=== PATIENT | female | born 1995 | race Caucasian/White ===

== ENCOUNTER → 2018-02-08 | Outpatient (CLI) | payer OTHER ==
[~2018-02-08] MED LIST: HYDACE5 PO; Miralax17 GM PO; SEASONAL ALLERGY MED; Zofran Odt4 MG SL
[2018-02-09 11:58] LABS: Bilirubin, Urine Neg (Neg); Blood, Urine Neg (Neg); Glucose Qualitative, Urine Neg (Neg); Ketones, Urine Neg (Neg); Leukocyte Esterase, Urine 1+ (Neg); Nitrite, Urine Neg (Neg); Protein, Urine Neg (Neg); Urobilinogen, Urine NORM (Normal)
[2018-02-09 12:04] LABS: Appearance, Urine Clear (Clear); Color, Urine Yellow (P-Yellow)
[2018-02-09 12:05] LABS: Red Blood Cells, Urine Not Seen /hpf (0-2); Squamous Epithelial Cells Many /hpf (Few); White Blood Cells, Urine 0-2 /hpf (0-5)
[2018-02-09 12:06] LABS: Bacteria Not Seen /hpf; Triple Phosphate Crystals Few /hpf
== END ==
LOC: LAB 11:34 → LAB SHORT 11:34
PROVIDERS: Registered Nurse Community Health
DX: Z34.91 Encounter for supervision of normal pregnancy, unspecified, first trimester (principal)
CPT/HCPCS: 81001; 87086

== ENCOUNTER → 2018-03-01 | Outpatient (CLI) | payer OTHER ==
[2018-03-03 03:12] LABS: CHLAMYDIA TRACHOMATIS, NAA Negative (Negative); NEISSERIA GONORRHOEAE, NAA Negative (Negative)
== END ==
LOC: LAB 14:08 → LAB SHORT 14:08
PROVIDERS: Registered Nurse Community Health
DX: Z11.3 Encounter for screening for infections with a predominantly sexual mode of transmission (principal)
CPT/HCPCS: 87491; 87591

== ENCOUNTER → 2018-03-13 | Outpatient (CLI) | payer OTHER ==
[2018-03-13 11:02] LABS: BASOPHILS ABSOLUTE AUTO 0.06 K/mm3 (0.00-0.23); BASOPHILS PERCENT AUTO 1 % (0-2); EOSINOPHILS ABSOLUTE AUTO 0.07 K/mm3 (0.00-0.68); EOSINOPHILS PERCENT AUTO 1 % (0-6); Hematocrit 39.9 % (33.0-51.0); Hemoglobin 14.2 g/dL (11.5-16.0); IMMATURE GRAN PERCENT AUTO 1 % (0-1); LYMPHOCYTES ABSOLUTE AUTO 2.45 K/mm3 (0.84-5.20); LYMPHOCYTES PERCENT AUTO 23 % (21-46); MONOCYTES ABSOLUTE AUTO 0.71 K/mm3 (0.16-1.47); MONOCYTES PERCENT AUTO 7 % (4-13); Mean Corpuscular HGB 30.3 pg (26.0-34.0); Mean Corpuscular HGB Conc 35.6 g/dL (31.5-36.5); Mean Corpuscular Volume 85 fL (80-100); Mean Platelet Volume 10.1 fL (9.1-12.4); NEUTROPHILS ABSOLUTE AUTO 7.45 K/mm3 (1.96-9.15); NEUTROPHILS PERCENT AUTO 69 % (41-73); Platelet Count 311 K/mm3 (150-400); RDW Coefficient Variation 12.8 % (11.7-14.2); RDW Standard Deviation 39.1 fL (35.1-46.3); Red Blood Cell Count 4.68 M/mm3 (3.80-5.20); White Blood Cell Count 10.84 K/mm3 (4.00-11.30)
[2018-03-13 11:10] LABS: Alanine Aminotransfer (ALT/SGP 54 U/L (12-78); Albumin, Blood 3.7 g/dL (3.4-5.0); Alk Phos 62 U/L (40-126); Anion Gap 15 mmol/L (6-16); Aspartate Aminotrans (AST/SGOT 25 U/L (12-37); Bilirubin, Total 0.6 mg/dL (0.1-1.0); Blood Urea Nitrogen 10 mg/dL (8-24); Bun/Creatinine Ratio 13.7 (12.0-20.0); CO2, Blood 20 mmol/L (21-32); Calcium, Blood 8.8 mg/dL (8.5-10.1); Chloride, Blood 102 mmol/L (98-108); Creatinine, Blood 0.73 mg/dL (0.40-1.00); Globulin, Blood 3.8 g/dL (2.2-4.0); Glomerular Filtration Rate >60 (60-); Glucose, Blood 120 mg/dL (70-99); Potassium, Blood 3.2 mmol/L (3.5-5.5); Sodium, Blood 137 mmol/L (136-145); Total Protein, Blood 7.5 g/dL (6.4-8.2)
== END | disposition home or self-care (01) ==
LOC: LAB SHORT 10:55 → LAB EV 10:55
PROVIDERS: Physician Assistant Medical
DX: R11.2 Nausea with vomiting, unspecified (principal)
CPT/HCPCS: 80053; 85025

== ENCOUNTER → 2018-06-22 | Outpatient (CLI) | payer OTHER ==
[2018-06-22 12:12] LABS: Blood, Urine 2+ (Neg); Glucose Qualitative, Urine Neg (Neg); Ketones, Urine 4+ (Neg); Leukocyte Esterase, Urine 2+ (Neg); Nitrite, Urine Pos (Neg); Protein, Urine 2+ (Neg); Urobilinogen, Urine 3+ (Normal)
[2018-06-22 12:38] LABS: Appearance, Urine Turbid (Clear); Bilirubin, Urine 2+ (Neg); Color, Urine Yellow (P-Yellow)
[2018-06-22 12:39] LABS: Amorphous Mod (0-Heavy); Mucus Light (0-Heavy)
[2018-06-22 12:40] LABS: Bacteria Few /hpf; Squamous Epithelial Cells Mod /hpf (Few)
== END ==
LOC: LAB 11:47 → LAB SHORT 11:47
PROVIDERS: Registered Nurse Community Health
DX: R82.998 Other abnormal findings in urine (principal)
CPT/HCPCS: 81001

== ENCOUNTER 2018-06-26 14:05 | Day surgery (SDC) | payer OTHER | END 2018-06-26 22:59 | disposition home or self-care (01) | LOC: ATC 14:05 | DX: O21.2 Late vomiting of pregnancy (principal); Z3A.23 23 weeks gestation of pregnancy | CPT/HCPCS: 96361; 96374; J2405 ==

== ENCOUNTER 2018-06-29 11:09 | Observation (INO) | payer OTHER ==
[2018-06-29 16:07] LABS: Source, Urine Clean Catch
[2018-06-29 16:18] LABS: Appearance, Urine Hazy (Clear); Bilirubin, Urine Neg (Neg); Blood, Urine 1+ (Neg); Color, Urine Amber (P-Yellow); Glucose Qualitative, Urine 3+ (Neg); Ketones, Urine 4+ (Neg); Leukocyte Esterase, Urine 1+ (Neg); Nitrite, Urine Neg (Neg); Protein, Urine 2+ (Neg); Specific Gravity, Urine 1.025 (1.003-1.022); Urobilinogen, Urine 2+ (Normal)
[2018-06-29 16:43] LABS: Squamous Epithelial Cells Mod /hpf (Few)
[2018-06-29 16:44] LABS: Bacteria Few /hpf
--- NOTE | 2018-06-29 17:06 | NUR ---
SENT OVER FROM OFFICE FOR IV HYDRATION.HAS RECEIVED 2500 CC OF IVF AND URINE KETONES ARE 4+
--- NOTE | 2018-06-29 21:09 | NUR ---
PT HAS BEEN SITTING UP IN HIGH FOWLERS POSITION IN BED. NO EMESIS THIS SHIFT. PT HAS BEEN UP TO BATHROOM TWICE WITH A TOTAL OF 250 ML OUTPUT SO FAR THIS SHIFT. URINE CONCENTRATED COLOR. PT C/O INTENSE REFLUX/HEARTBURN. UNABLE TO EAT ANYTHING AT THIS POINT EVEN AFTER PROTONIX. CRACKERS, PRETZELS, AND FRITOS AT THE BEDSIDE. PT EATING ICE CHIPS AT THIS POINT.
--- NOTE | 2018-06-29 23:08 | NUR ---
PT MEDICATED FOR NAUSEA AND GOING TO TRY TO SLEEP. LIGHTS OFF. PT TO CALL IF SHE WAKES AND NEEDS ANYTHING OTHERWISE RN WILL BE IN ROOM TO CHANGE FLUIDS NEEDED.
--- NOTE | 2018-06-30 03:56 | NUR ---
PT HAS BEEN SLEEPING. PT HAS ONLY HAD A COUPLE PRETZELS THIS SHIFT THAT DID NOT SIT WELL WITH HER STOMACH. NO EMESIS THIS SHIFT. PT CURRENLTY EATING ICE CHIPS. LUNGS CLEAR. NO SOB NOTED. NO CHANGES IN SWELLING ONLY TRACE EDEMA NOTED TO BLE. PT HAD DENIED NEEDING SECOND DOSE OF PHENERGAN. WILL CONT TO MONITOR
--- NOTE | 2018-06-30 06:25 | NUR ---
PT DUE FOR ZOFRAN HOWEVER PT SLEEPING IN ROOM. NO EMESIS THIS SHIFT. PT WAS ABLE TO SLEEP SOME DURING THE SHIFT. URINE REMAINS CONCENTRATED HOWEVER COLOR HAS GONE FROM SLIGHTLY KENNETH TO MEDIUM TO DARK YELLOW COLOR.
--- NOTE | 2018-06-30 07:59 | NUR ---
LEX COURTNEY AT BEDSIDE
[2018-06-30 08:45] LABS: BASOPHILS ABSOLUTE AUTO 0.02 K/mm3 (0.00-0.23); BASOPHILS PERCENT AUTO 0 % (0-2); EOSINOPHILS ABSOLUTE AUTO 0.06 K/mm3 (0.00-0.68); EOSINOPHILS PERCENT AUTO 1 % (0-6); Hematocrit 26.3 % (33.0-51.0); Hemoglobin 9.1 g/dL (11.5-16.0); IMMATURE GRAN ABSOLUTE AUTO 0.19 K/mm3 (0.00-0.10); IMMATURE GRAN PERCENT AUTO 3 % (0-1); LYMPHOCYTES ABSOLUTE AUTO 1.58 K/mm3 (0.84-5.20); LYMPHOCYTES PERCENT AUTO 27 % (21-46); MONOCYTES ABSOLUTE AUTO 0.44 K/mm3 (0.16-1.47); MONOCYTES PERCENT AUTO 7 % (4-13); Mean Corpuscular HGB Conc 34.6 g/dL (31.5-36.5); Mean Corpuscular Volume 90 fL (80-100); Mean Platelet Volume 10.2 fL (9.1-12.4); NEUTROPHILS ABSOLUTE AUTO 3.62 K/mm3 (1.96-9.15); NEUTROPHILS PERCENT AUTO 61 % (41-73); Platelet Count 153 K/mm3 (150-400); RDW Coefficient Variation 13.9 % (11.7-14.2); Red Blood Cell Count 2.94 M/mm3 (3.80-5.20); White Blood Cell Count 5.91 K/mm3 (4.00-11.30)
[2018-06-30 09:04] LABS: Alanine Aminotransfer (ALT/SGP 30 U/L (12-78); Albumin, Blood 2.4 g/dL (3.4-5.0); Albumin/Globulin Ratio 0.8 (0.8-1.8); Alk Phos 55 U/L (50-136); Anion Gap 7 mmol/L (6-16); Aspartate Aminotrans (AST/SGOT 14 U/L (12-37); Bilirubin, Total 0.6 mg/dL (0.1-1.0); Blood Urea Nitrogen 2 mg/dL (8-24); Bun/Creatinine Ratio 4.4 (12.0-20.0); CO2, Blood 25 mmol/L (21-32); Calcium, Blood 7.4 mg/dL (8.5-10.1); Chloride, Blood 106 mmol/L (98-108); Creatinine, Blood 0.46 mg/dL (0.40-1.00); Globulin, Blood 3.1 g/dL (2.2-4.0); Glomerular Filtration Rate >60 (60-); Glucose, Blood 116 mg/dL (70-99); Potassium, Blood 2.6 mmol/L (3.5-5.5); Sodium, Blood 138 mmol/L (136-145); Total Protein, Blood 5.5 g/dL (6.4-8.2)
[2018-06-30 09:11] LABS: Source, Urine Clean Catch
[2018-06-30 09:20] LABS: Bilirubin, Urine Neg (Neg); Blood, Urine Neg (Neg); Glucose Qualitative, Urine Neg (Neg); Ketones, Urine 3+ (Neg); Leukocyte Esterase, Urine Neg (Neg); Nitrite, Urine Neg (Neg); Protein, Urine Neg (Neg); Urobilinogen, Urine 2+ (Normal)
[2018-06-30 09:21] LABS: Appearance, Urine Clear (Clear); Color, Urine Yellow (P-Yellow)
--- NOTE | 2018-06-30 10:38 | NUR ---
WATER GIVEN, ENCOURAGED TO TRY AND DRINK 1 CUP IN AN HOUR
--- NOTE | 2018-06-30 11:36 | NUR ---
PT DRANK 300CC FLUID IN AN HOUR, ATE A FEW PRETZELS. FEELS SOME NAUSEA BUT STATES SHE WOULD RATHER BE AT HOME. WOULD LIKE TO DISCHARGE TO HOME NOW.
--- NOTE | 2018-06-30 11:50 | NUR ---
DISCHARGE INSTRUCTIONS REVIEWED AND SIGNED. ALL QUESTIONS ANSWERED. PT CUP GIVEN PT UNDERSTANDS TO DRINK 1CUP OF FLUID EACH HOUR AND TO CONTINUE EATING. T DOPPLERED, 145. PT DISCHARGED TO HOME.
== END 2018-06-30 11:52 | disposition home or self-care (01) ==
LOC: BC 11:09 → OBS 11:09 → BC 17:44
PROVIDERS: ADMIT Registered Nurse Community Health
DX: O21.1 Hyperemesis gravidarum with metabolic disturbance (principal); Z3A.24 24 weeks gestation of pregnancy
CPT/HCPCS: 36415; 80053; 81001; 81003; 85025; 96361; 96374; 96375; 96376; C9113; G0378; J2405; J7120

== ENCOUNTER 2018-07-04 00:21 | Day surgery (SDC) | payer OTHER ==
--- NOTE | 2018-07-04 09:48 | NUR ---
IV START: IV STARTED BY SN ROBBIE MILLER, ATTEMPTED 2 TIMES, SUCCESSFUL ON 2ND ATTEMPT IN R HAND.
== END 2018-07-04 22:43 | disposition home or self-care (01) ==
LOC: ATC 00:21
DX: O21.9 Vomiting of pregnancy, unspecified (principal); O99.282 Endocrine, nutritional and metabolic diseases complicating pregnancy, second trimester; E86.0 Dehydration; Z79.899 Other long term (current) drug therapy; Z87.891 Personal history of nicotine dependence; Z3A.27 27 weeks gestation of pregnancy
CPT/HCPCS: 96361; 96374; J2405; J7060; J7120

== ENCOUNTER 2018-07-06 00:02 | Day surgery (SDC) | payer OTHER ==
[2018-07-10] MEDS ORDERED: METO5A PO (09:28)
[2018-07-10] MEDS ORDERED: PROM25 PO (09:28)
[2018-07-10] MEDS ORDERED: Verotin-Gr Cap1 EACH PO (09:29)
== END 2018-07-06 12:21 | disposition home or self-care (01) ==
LOC: ATC 00:02
DX: O21.9 Vomiting of pregnancy, unspecified (principal); O99.280 Endocrine, nutritional and metabolic diseases complicating pregnancy, unspecified trimester; E86.0 Dehydration; Z87.891 Personal history of nicotine dependence
CPT/HCPCS: 96361; 96372; 96374; J2405; J3415; J7060; J7120

== ENCOUNTER 2018-07-12 00:15 | Day surgery (SDC) | payer OTHER ==
[~2018-07-12 00:15] MED LIST changes: +METO5A PO; +PROM25 PO; +Verotin-Gr Cap1 EACH PO
== END 2018-07-12 12:12 | disposition home or self-care (01) ==
LOC: ATC 00:15
DX: O21.9 Vomiting of pregnancy, unspecified (principal); O99.282 Endocrine, nutritional and metabolic diseases complicating pregnancy, second trimester; E86.0 Dehydration
CPT/HCPCS: 96361; 96372; 96374; J2405; J3415; J7060; J7120

== ENCOUNTER 2018-07-19 00:16 | Day surgery (SDC) | payer OTHER ==
[2018-07-19] MEDS ORDERED: (None)100 MG/ML IM (09:13)
== END 2018-07-19 11:52 | disposition home or self-care (01) ==
LOC: ATC 00:16
DX: O99.280 Endocrine, nutritional and metabolic diseases complicating pregnancy, unspecified trimester (principal); E86.0 Dehydration; O21.9 Vomiting of pregnancy, unspecified; Z87.891 Personal history of nicotine dependence
CPT/HCPCS: 96361; 96372; 96374; J2405; J3415; J7060; J7120

== ENCOUNTER 2018-07-24 00:27 | Day surgery (SDC) | payer OTHER ==
[~2018-07-24 00:27] MED LIST changes: +(None)100 MG/ML IM
== END 2018-07-24 12:10 | disposition home or self-care (01) ==
LOC: ATC 00:27
DX: O21.9 Vomiting of pregnancy, unspecified (principal); O99.282 Endocrine, nutritional and metabolic diseases complicating pregnancy, second trimester; E86.0 Dehydration
CPT/HCPCS: 96361; 96372; 96374; J2405; J3415; J7060; J7120

== ENCOUNTER 2018-07-26 00:04 | Day surgery (SDC) | payer OTHER | END 2018-07-26 12:28 | disposition home or self-care (01) | LOC: ATC 00:04 | DX: O21.9 Vomiting of pregnancy, unspecified (principal); O99.280 Endocrine, nutritional and metabolic diseases complicating pregnancy, unspecified trimester; E86.0 Dehydration | CPT/HCPCS: 96361; 96372; 96374; J2405; J3415; J7060; J7120 ==

== ENCOUNTER 2018-07-31 11:58 | Day surgery (SDC) | payer OTHER ==
[2018-07-31] MEDS ORDERED: ONDA8 PO (14:14)
[2018-09-18] MEDS ORDERED: ONDANSETRON4 MG/2 ML (09:06)
[2018-09-18] MEDS ORDERED: ONDA8 PO (09:07)
[2018-09-18] MEDS ORDERED: OMEPRAZOLE20 MG PO (09:07)
[2018-09-18] MEDS ORDERED: PANT40 PO (09:08)
[2018-09-18] MEDS ORDERED: METO10 PO (09:09)
== END 2018-07-31 16:43 | disposition home or self-care (01) ==
LOC: ATC 11:58
DX: O21.9 Vomiting of pregnancy, unspecified (principal); O99.280 Endocrine, nutritional and metabolic diseases complicating pregnancy, unspecified trimester; E86.0 Dehydration
CPT/HCPCS: 96361; 96372; 96374; J2405; J3415; J7060; J7120

== ENCOUNTER 2018-08-02 00:12 | Day surgery (SDC) | payer OTHER ==
[~2018-08-02 00:12] MED LIST changes: +ONDA8 PO
--- NOTE | 2018-08-02 17:48 | NUR ---
PT REFUSED 2ND L OF LR. TOLERATED 1ST L OF LR AND BANANA BAG, BUT C/O NAUSEA AND FEELING FLUSHED TOWARD THE END. PT STATED THAT SHE WAS FINE, DECLINED ADDITIONAL CARE, STATED SHE WOULD TAKE ZOFRAN AT HOME IF SHE NEEDED TO.
[2018-09-18] MEDS ORDERED: ONDANSETRON4 MG/2 ML (09:06)
[2018-09-18] MEDS ORDERED: ONDA8 PO (09:07)
[2018-09-18] MEDS ORDERED: OMEPRAZOLE20 MG PO (09:07)
[2018-09-18] MEDS ORDERED: PANT40 PO (09:08)
[2018-09-18] MEDS ORDERED: METO10 PO (09:09)
== END 2018-08-02 17:44 | disposition home or self-care (01) ==
LOC: ATC 00:12
DX: O21.9 Vomiting of pregnancy, unspecified (principal); O99.280 Endocrine, nutritional and metabolic diseases complicating pregnancy, unspecified trimester; E86.0 Dehydration
CPT/HCPCS: 96360; 96361; 96365; 96366; 96372; 96374; 96375; J2405; J3411; J3415; J3475; J7042; J7060; J7120

== ENCOUNTER 2018-08-06 00:23 | Day surgery (SDC) | payer OTHER ==
[2018-09-18] MEDS ORDERED: ONDANSETRON4 MG/2 ML (09:06)
[2018-09-18] MEDS ORDERED: OMEPRAZOLE20 MG PO (09:07)
[2018-09-18] MEDS ORDERED: ONDA8 PO (09:07)
[2018-09-18] MEDS ORDERED: PANT40 PO (09:08)
[2018-09-18] MEDS ORDERED: METO10 PO (09:09)
== END 2018-08-06 15:54 | disposition home or self-care (01) ==
LOC: ATC 00:23
DX: O21.9 Vomiting of pregnancy, unspecified (principal); O99.280 Endocrine, nutritional and metabolic diseases complicating pregnancy, unspecified trimester; E86.0 Dehydration
CPT/HCPCS: 96361; 96365; 96372; 96375; J2405; J3411; J3415; J3475; J7042; J7060; J7120

== ENCOUNTER 2018-08-09 00:15 | Day surgery (SDC) | payer OTHER ==
[2018-09-18] MEDS ORDERED: ONDANSETRON4 MG/2 ML (09:06)
[2018-09-18] MEDS ORDERED: ONDA8 PO (09:07)
[2018-09-18] MEDS ORDERED: OMEPRAZOLE20 MG PO (09:07)
[2018-09-18] MEDS ORDERED: PANT40 PO (09:08)
[2018-09-18] MEDS ORDERED: METO10 PO (09:09)
== END 2018-08-09 16:54 | disposition home or self-care (01) ==
LOC: ATC 00:15
DX: O21.9 Vomiting of pregnancy, unspecified (principal); O99.280 Endocrine, nutritional and metabolic diseases complicating pregnancy, unspecified trimester; E86.0 Dehydration
CPT/HCPCS: 96361; 96365; 96372; 96375; J2405; J3411; J3415; J3475; J7042; J7070; J7120

== ENCOUNTER 2018-08-14 03:04 | Day surgery (SDC) | payer OTHER ==
[2018-09-18] MEDS ORDERED: ONDANSETRON4 MG/2 ML (09:06)
[2018-09-18] MEDS ORDERED: OMEPRAZOLE20 MG PO (09:07)
[2018-09-18] MEDS ORDERED: ONDA8 PO (09:07)
[2018-09-18] MEDS ORDERED: PANT40 PO (09:08)
[2018-09-18] MEDS ORDERED: METO10 PO (09:09)
== END 2018-08-14 16:57 | disposition home or self-care (01) ==
LOC: ATC 03:04
DX: O21.9 Vomiting of pregnancy, unspecified (principal); O99.280 Endocrine, nutritional and metabolic diseases complicating pregnancy, unspecified trimester; E86.0 Dehydration
CPT/HCPCS: 96361; 96365; 96372; 96375; J2405; J3411; J3415; J3475; J7042; J7120

== ENCOUNTER 2018-08-17 00:20 | Day surgery (SDC) | payer OTHER ==
[2018-09-18] MEDS ORDERED: ONDANSETRON4 MG/2 ML (09:06)
[2018-09-18] MEDS ORDERED: ONDA8 PO (09:07)
[2018-09-18] MEDS ORDERED: OMEPRAZOLE20 MG PO (09:07)
[2018-09-18] MEDS ORDERED: PANT40 PO (09:08)
[2018-09-18] MEDS ORDERED: METO10 PO (09:09)
== END 2018-08-17 18:09 | disposition home or self-care (01) ==
LOC: ATC 00:20
DX: O21.9 Vomiting of pregnancy, unspecified (principal); O99.280 Endocrine, nutritional and metabolic diseases complicating pregnancy, unspecified trimester; E86.0 Dehydration
CPT/HCPCS: 96361; 96365; 96372; 96375; J2405; J3411; J3415; J3475; J7042; J7120

== ENCOUNTER 2018-08-21 00:13 | Day surgery (SDC) | payer OTHER ==
[2018-09-18] MEDS ORDERED: ONDANSETRON4 MG/2 ML (09:06)
[2018-09-18] MEDS ORDERED: OMEPRAZOLE20 MG PO (09:07)
[2018-09-18] MEDS ORDERED: ONDA8 PO (09:07)
[2018-09-18] MEDS ORDERED: PANT40 PO (09:08)
[2018-09-18] MEDS ORDERED: METO10 PO (09:09)
== END 2018-08-21 17:01 | disposition home or self-care (01) ==
LOC: ATC 00:13
DX: O21.9 Vomiting of pregnancy, unspecified (principal); O99.280 Endocrine, nutritional and metabolic diseases complicating pregnancy, unspecified trimester; E86.0 Dehydration
CPT/HCPCS: 96361; 96365; 96372; 96375; J2405; J3411; J3415; J3475; J7042; J7120

== ENCOUNTER 2018-08-26 13:39 | Day surgery (SDC) | payer OTHER ==
[2018-09-18] MEDS ORDERED: ONDANSETRON4 MG/2 ML (09:06)
[2018-09-18] MEDS ORDERED: ONDA8 PO (09:07)
[2018-09-18] MEDS ORDERED: OMEPRAZOLE20 MG PO (09:07)
[2018-09-18] MEDS ORDERED: PANT40 PO (09:08)
[2018-09-18] MEDS ORDERED: METO10 PO (09:09)
== END 2018-08-26 17:35 | disposition home or self-care (01) ==
LOC: ATC 13:39
DX: O21.9 Vomiting of pregnancy, unspecified (principal); O99.280 Endocrine, nutritional and metabolic diseases complicating pregnancy, unspecified trimester; E86.0 Dehydration
CPT/HCPCS: 96361; 96365; 96372; 96375; J2405; J3411; J3415; J3475; J7042; J7120

== ENCOUNTER 2018-08-29 00:20 | Day surgery (SDC) | payer OTHER ==
[2018-09-18] MEDS ORDERED: ONDANSETRON4 MG/2 ML (09:06)
[2018-09-18] MEDS ORDERED: OMEPRAZOLE20 MG PO (09:07)
[2018-09-18] MEDS ORDERED: ONDA8 PO (09:07)
[2018-09-18] MEDS ORDERED: PANT40 PO (09:08)
[2018-09-18] MEDS ORDERED: METO10 PO (09:09)
== END 2018-08-29 17:10 | disposition home or self-care (01) ==
LOC: ATC 00:20
DX: O21.2 Late vomiting of pregnancy (principal); Z3A.33 33 weeks gestation of pregnancy; Z87.891 Personal history of nicotine dependence; O34.219 Maternal care for unspecified type scar from previous cesarean delivery; N85.8 Other specified noninflammatory disorders of uterus; Z79.899 Other long term (current) drug therapy
CPT/HCPCS: 96361; 96365; 96372; 96375; J2405; J3411; J3415; J3475; J7042; J7120

== ENCOUNTER 2018-09-01 14:56 | Day surgery (SDC) | payer OTHER ==
[2018-09-18] MEDS ORDERED: ONDANSETRON4 MG/2 ML (09:06)
[2018-09-18] MEDS ORDERED: ONDA8 PO (09:07)
[2018-09-18] MEDS ORDERED: OMEPRAZOLE20 MG PO (09:07)
[2018-09-18] MEDS ORDERED: PANT40 PO (09:08)
[2018-09-18] MEDS ORDERED: METO10 PO (09:09)
== END 2018-09-01 18:26 | disposition home or self-care (01) ==
LOC: ATC 14:56
DX: O99.89 Other specified diseases and conditions complicating pregnancy, childbirth and the puerperium (principal); R11.10 Vomiting, unspecified; Z87.891 Personal history of nicotine dependence
CPT/HCPCS: 96361; 96365; 96372; 96375; J2405; J3411; J3415; J3475; J7042; J7120

== ENCOUNTER 2018-09-04 00:20 | Day surgery (SDC) | payer OTHER ==
[2018-09-18] MEDS ORDERED: ONDANSETRON4 MG/2 ML (09:06)
[2018-09-18] MEDS ORDERED: ONDA8 PO (09:07)
[2018-09-18] MEDS ORDERED: OMEPRAZOLE20 MG PO (09:07)
[2018-09-18] MEDS ORDERED: PANT40 PO (09:08)
[2018-09-18] MEDS ORDERED: METO10 PO (09:09)
== END 2018-09-04 17:00 | disposition home or self-care (01) ==
LOC: ATC 00:20
DX: O21.2 Late vomiting of pregnancy (principal); Z87.891 Personal history of nicotine dependence
CPT/HCPCS: 96361; 96365; 96372; J2405; J3411; J3415; J3475; J7042; J7120

== ENCOUNTER 2018-09-08 13:28 | Day surgery (SDC) | payer OTHER ==
[2018-09-18] MEDS ORDERED: ONDANSETRON4 MG/2 ML (09:06)
[2018-09-18] MEDS ORDERED: ONDA8 PO (09:07)
[2018-09-18] MEDS ORDERED: OMEPRAZOLE20 MG PO (09:07)
[2018-09-18] MEDS ORDERED: PANT40 PO (09:08)
[2018-09-18] MEDS ORDERED: METO10 PO (09:09)
== END 2018-09-08 17:02 | disposition home or self-care (01) ==
LOC: ATC 13:28
DX: O21.2 Late vomiting of pregnancy (principal); Z3A.34 34 weeks gestation of pregnancy; Z87.891 Personal history of nicotine dependence
CPT/HCPCS: 96361; 96365; 96372; 96375; J2405; J3411; J3415; J3475; J7030; J7042; J7120

== ENCOUNTER 2018-09-12 11:41 | Day surgery (SDC) | payer OTHER ==
--- NOTE | 2018-09-12 14:37 | NUR ---
NOTIFIED PROVIDER ANA GAFFNEY ON PT VS AND WANTS US TO CONTINUE WITH CURRENT IVF ORDERS, RECHECK VS POST IVF AND NOTIFY OFFICE.
--- NOTE | 2018-09-12 17:30 | NUR ---
NOTIFIED PROVIDER OF PATIENTS BLOOD PRESSURE. PATIENT FEELING VERY NAUSEATED, DOES NOT BELIEVE SHE CAN EAT AT THIS POINT. PATIENT ADMITTED TO [facility] FOR IV FLUIDS.
[2018-09-18] MEDS ORDERED: ONDANSETRON4 MG/2 ML (09:06)
[2018-09-18] MEDS ORDERED: OMEPRAZOLE20 MG PO (09:07)
[2018-09-18] MEDS ORDERED: ONDA8 PO (09:07)
[2018-09-18] MEDS ORDERED: PANT40 PO (09:08)
[2018-09-18] MEDS ORDERED: METO10 PO (09:09)
== END 2018-09-12 17:25 | disposition home or self-care (01) ==
LOC: ATC 11:41
DX: O21.2 Late vomiting of pregnancy (principal); Z3A.34 34 weeks gestation of pregnancy; Z87.891 Personal history of nicotine dependence; Z79.899 Other long term (current) drug therapy
CPT/HCPCS: 96361; 96365; 96372; 96375; J2405; J3411; J3415; J3475; J7042; J7120

== ENCOUNTER 2018-09-12 17:23 | Inpatient (IN) | payer OTHER ==
[~2018-09-12] VITALS: Ht 162.6 cm; Wt 104.0 kg
[2018-09-12 20:49] LABS: Source, Urine Clean Catch
[2018-09-12 20:57] LABS: Appearance, Urine Clear (Clear); Blood, Urine Neg (Neg); Color, Urine Amber (P-Yellow); Glucose Qualitative, Urine Neg (Neg); Ketones, Urine 4+ (Neg); Leukocyte Esterase, Urine 1+ (Neg); Nitrite, Urine Neg (Neg); Protein, Urine 2+ (Neg); Specific Gravity, Urine 1.025 (1.003-1.022); Urobilinogen, Urine 2+ (Normal)
[2018-09-12 20:59] LABS: Bilirubin, Urine 1+ (Neg)
[2018-09-12 21:05] LABS: Bacteria Few /hpf; Mucus Light (0-Heavy); Red Blood Cells, Urine 0-2 /hpf (0-2); Squamous Epithelial Cells Many /hpf (Few)
[2018-09-13 00:32] LABS: Source, Urine Voided
[2018-09-13 00:39] LABS: Appearance, Urine Clear (Clear); Bilirubin, Urine Neg (Neg); Blood, Urine Neg (Neg); Color, Urine Amber (P-Yellow); Glucose Qualitative, Urine Neg (Neg); Ketones, Urine 4+ (Neg); Leukocyte Esterase, Urine Neg (Neg); Nitrite, Urine Neg (Neg); Protein, Urine 2+ (Neg); Specific Gravity, Urine 1.025 (1.003-1.022); Urobilinogen, Urine 2+ (Normal)
[2018-09-13 00:45] LABS: Bacteria Mod /hpf; Mucus Light (0-Heavy); Red Blood Cells, Urine 0-2 /hpf (0-2); Squamous Epithelial Cells Few /hpf (Few)
[2018-09-13 06:55] LABS: Source, Urine Voided
--- NOTE | 2018-09-13 06:55 | NUR ---
AISLINN GAFFNEY CMN CALLED TO UPDATE ABOUT URINE OUTPUT, COLOR, KETONES, PT VOMITING, HEARTBURN, ORDER FOR PROTONIX GIVEN, ORDER FOR LABS TO BE DRAWN, CMP, CBC, URIC ACID, 24 HR URINE. ALSO UPDATED THAT PT ONLY SLEPT 1.5 HRS AT MOST
[2018-09-13 07:10] LABS: Appearance, Urine Clear (Clear); Bilirubin, Urine Neg (Neg); Blood, Urine Neg (Neg); Color, Urine Yellow (P-Yellow); Glucose Qualitative, Urine Neg (Neg); Ketones, Urine 4+ (Neg); Leukocyte Esterase, Urine 1+ (Neg); Nitrite, Urine Neg (Neg); Protein, Urine Neg (Neg); Urobilinogen, Urine 2+ (Normal)
[2018-09-13 07:18] LABS: BASOPHILS ABSOLUTE AUTO 0.05 K/mm3 (0.00-0.23); BASOPHILS PERCENT AUTO 1 % (0-2); EOSINOPHILS ABSOLUTE AUTO 0.06 K/mm3 (0.00-0.68); EOSINOPHILS PERCENT AUTO 1 % (0-6); Hematocrit 32.3 % (33.0-51.0); Hemoglobin 11.3 g/dL (11.5-16.0); IMMATURE GRAN ABSOLUTE AUTO 0.17 K/mm3 (0.00-0.10); IMMATURE GRAN PERCENT AUTO 2 % (0-1); LYMPHOCYTES ABSOLUTE AUTO 1.39 K/mm3 (0.84-5.20); LYMPHOCYTES PERCENT AUTO 13 % (21-46); MONOCYTES ABSOLUTE AUTO 0.82 K/mm3 (0.16-1.47); MONOCYTES PERCENT AUTO 7 % (4-13); Mean Corpuscular HGB 31.4 pg (26.0-34.0); Mean Corpuscular Volume 90 fL (80-100); Mean Platelet Volume 10.6 fL (9.1-12.4); NEUTROPHILS ABSOLUTE AUTO 8.55 K/mm3 (1.96-9.15); NEUTROPHILS PERCENT AUTO 78 % (41-73); Platelet Count 242 K/mm3 (150-400); RDW Coefficient Variation 14.2 % (11.7-14.2); RDW Standard Deviation 45.8 fL (35.1-46.3); White Blood Cell Count 11.04 K/mm3 (4.00-11.30)
[2018-09-13 07:19] LABS: Bacteria Few /hpf; Red Blood Cells, Urine 0-2 /hpf (0-2); Squamous Epithelial Cells Few /hpf (Few)
[2018-09-13 07:37] LABS: Alanine Aminotransfer (ALT/SGP 61 U/L (12-78); Albumin, Blood 2.6 g/dL (3.4-5.0); Albumin/Globulin Ratio 0.6 (0.8-1.8); Alk Phos 124 U/L (50-136); Anion Gap 13 mmol/L (6-16); Aspartate Aminotrans (AST/SGOT 29 U/L (12-37); Bilirubin, Total 2.1 mg/dL (0.1-1.0); Blood Urea Nitrogen 2 mg/dL (8-24); Bun/Creatinine Ratio 3.5 (12.0-20.0); CO2, Blood 17 mmol/L (21-32); Calcium, Blood 8.4 mg/dL (8.5-10.1); Chloride, Blood 108 mmol/L (98-108); Creatinine, Blood 0.58 mg/dL (0.40-1.00); Glomerular Filtration Rate >60 (60-); Glucose, Blood 88 mg/dL (70-99); Potassium, Blood 2.8 mmol/L (3.5-5.5); Sodium, Blood 138 mmol/L (136-145); Total Protein, Blood 6.6 g/dL (6.4-8.2); Uric Acid, Blood 11.3 mg/dL (2.6-6.0)
--- NOTE | 2018-09-13 08:01 | NUR ---
NURSING RN CLINICAL TRIALS CALLED TO SEE IF ANY STAFF IN HOSP AVAILABLE TO PLACE PICC LINE. FLORIAN VO,RN TO TALK TO HER PARTNER AND SEE IF SHE IS AVAILABLE TO PLACE ONE. FLORIAN TO GET BACK WITH PRIMARY RN
[2018-09-13 09:30] LABS: Amylase, Blood 85 U/L (25-115)
--- NOTE | 2018-09-13 11:21 | NUR ---
REPORT GIVEN TO MAYI PRAKASH ON MEDICAL FLOOR
--- NOTE | 2018-09-13 15:32 | NUR ---
BHRAMU PLACED. PT TOLERATED WELL. PER MARKER MACHINE GARLAND TEJEDA, TIP NEEDS TO BE IN THE DUODENUM. PLACEMENT VERIFIED BY DR. ARNOLD.
--- NOTE | 2018-09-13 16:01 | NUR ---
TUBE FEEDING INITIATED AT 1545. RESIDUAL CHECKED AND AT 0ML PRIOR TO INITIATION. PT TOLERATED 30ML FLUSH WELL.
--- NOTE | 2018-09-13 17:50 | NUR ---
SHIFT SUMMARY PT AXO, PLEASANT AND COOPERATIVE WITH CARE. PT TRANSFERRED FROM [facility] AT 1135. NG TUBE (DOBHOFF) PLACED AND FEEDINGS INITIATED AT 1545. PT TOLERATING WELL THOUGH STATES THAT SHE FEELS "BURPY." X-RAY VERIFIED PLACEMENT OF NG TUBE. POWERGLIDE PLACED IN UPPER R ARM. LR INFUSING PER EMAR. PT UP AD JENIFFER IN ROOM. STATES THAT NG TUBE IS IRRITATING HER NOSE AND THROAT. DR AVILEZ NOTIFIED OF PT POTASSIUM LEVEL. BED IN LOW POSITION, CALL LIGHT WITHIN REACH.
--- NOTE | 2018-09-13 21:32 | NUR ---
NST COMPLETE. Amandeep GAFFNEY CNM UPDATED.
--- NOTE | 2018-09-13 23:03 | NUR ---
DOBHOFF TUBE REPLACEMENT AFTER PT RECEIVED PO AMBIEN, SHE BECAME NAUSEOUS AND BEGAN VOMITING. IN THE PROCESS, THE DOBHOFF WAS DISLODGED AND SEVERAL INCHES OF THE TUBE CAME OUT OF HER MOUTH ALONG WITH THE EMESIS. THE TUBE WAS PULLED OUT AT THAT TIME. PT'S PHYSICIAN DR SCHWARTZ WAS CONSULTED, AND THE PT'S ZOFRAN INCREASED FROM Q8H TO Q6H. PT WAS MEDICATED FOR NAUSEA BEFORE NEW DOBHOFF TUBE PLACEMENT. CHEST X-RAY TO CHECK FOR TUBE PLACEMENT WAS COMPLETE. DR JEFFERS WAS CONSULTED ABOUT THE XRAY. AWAITING PHYSICIAN CONFIRMATION OF TUBE PLACEMENT.
[2018-09-14 05:48] LABS: Magnesium, Blood 1.4 mg/dL (1.6-2.4); Phosphorus, Blood 3.1 mg/dL (2.5-4.9)
--- NOTE | 2018-09-14 05:53 | NUR ---
SHIFT SUMMARY PT IS A 22 Y/O FEMALE, CURRENTLY 35 WEEKS , ADMITTED FOR REHYDRATION FOLLOWING RELATED HYPEREMESIS. SHE IS A&O X 4, AND INDEPENDENT IN THE ROOM. AFTER THE PT'S DOBHOFF WAS REPLACED (SEE PREVIOUS NOTE), THE PLACEMENT WAS REVIEWED BY CHEST XRAY AND OKAYED BY DR SCHWARTZ. PT SLEPT FOR A FEW HOURS FOLLOWING PLACEMENT. SHE REPORTED NAUSEA, AND WAS MEDICATED TWICE WITH PRN ZOFRAN. PT'S TUBE FEEDING WAS HELD DURING THE NIGHT PER DR SCHWARTZ. NO COMPLAINTS OF PAIN OR SOB. PT'S BP IS MILDLY ELEVATED, IN THE 150S SYSTOLICALLY. ALL OTHER VITALS STABLE. NO OTHER ACUTE CHANGES IN PT CONDITION NOTED. WILL CONTINUE TO MONITOR AND TREAT PER EMAR UNTIL HAND OFF TO DAY SHIFT.
[2018-09-14 07:44] LABS: Protein, Urine Quantitative 23.5 mg/dL (0.0-11.9)
[2018-09-14 07:47] LABS: Creatinine Urine 41.2 mg/dL (27.00-270.00)
--- NOTE | 2018-09-14 18:42 | NUR ---
shift summary patient is pleasant, alert and oriented, independent. currently nauseous but working through it. potential for discharge tomorrow if she can keep her food down.
--- NOTE | 2018-09-15 04:40 | NUR ---
NOC SHIFT SUMMARY PT IS PLEASANT AND COOPERATIVE WITH CARE. TREATED FOR NAUSEA ONCE THIS EVENING. WHEN ASKED THIS MORNING IF SHE FELT NAUSEATED OR NEEDED MORE ZOFRAN SHE RELATES SHE "IS FINE" AND WENT BACK TO SLEEP. NO OTHER COMPLAINTS OF PAIN OR DISCOMFORT THUS FAR. VSS. STILL REFUSING ORAL FLUIDS OR EVEN TO TAKE MEDS THROUGH DOBHOFF FOR FEAR OF VOMITING. PRESENTLY APPEARS TO BE SLEEPING AND IN NO ACUTE DISTRESS. WILL CONTINUE TO MONITOR.
[2018-09-15 07:51] LABS: Magnesium, Blood 1.3 mg/dL (1.6-2.4); Phosphorus, Blood 3.8 mg/dL (2.5-4.9)
--- NOTE | 2018-09-15 09:14 | NUR ---
PATIENT'S BLOOD SUGAR WAS LOW THIS AM, SHE WAS NAUSEOUS AND WAS GIVEN ONE DOSE OF ZOFRAN. SHE WAS GIVEN HER CLEAR LIQUID TRAY FOR BREAKFAST THIS AM AND WAS ABLE TO FINISH THE ENSURE. NO ACUTE CONCERNS AT THIS TIME.
--- NOTE | 2018-09-15 18:44 | NUR ---
DISCHARGE SUMMARY PATIENT WAS LEFT WITH THE POWERGLIDE PER DOCTOR REQUEST THE PATIENT HAS MULTIPLE INFUSIONS A WEEK. AT THIS TIME PATIENT IS AMBULATORY, INDEPENDENT, AND WALKED OUT WITH HER SIGNIFICANT OTHER.
[2018-09-18] MEDS ORDERED: ONDANSETRON4 MG/2 ML (09:06)
[2018-09-18] MEDS ORDERED: ONDA8 PO (09:07)
[2018-09-18] MEDS ORDERED: OMEPRAZOLE20 MG PO (09:07)
[2018-09-18] MEDS ORDERED: PANT40 PO (09:08)
[2018-09-18] MEDS ORDERED: METO10 PO (09:09)
== END 2018-09-15 18:38 | disposition home or self-care (01) | DRG 833 ==
LOC: OBS 17:23 → MEDS 17:43 → BC 17:43 → MEDS 09-13 11:42
PROVIDERS: ADMIT Registered Nurse Community Health
PROC: 05HY33Z Insertion of Infusion Device into Upper Vein, Percutaneous Approach (ICD-10-PCS; principal; 2018-09-13)
DX: O21.1 Hyperemesis gravidarum with metabolic disturbance (principal); R63.4 Abnormal weight loss; E86.0 Dehydration; Z3A.35 35 weeks gestation of pregnancy; Z98.891 History of uterine scar from previous surgery
CPT/HCPCS: 36415; 36569; 59025; 71045; 76705; 80053; 81001; 81050; 82150; 82570; 82947; 83690; 83735; 84100; 84156; 84550; 85025; 87086; C1751; C9113; J2405; J2550; J3475; J3480; J7120

== ENCOUNTER 2018-09-18 12:50 | Inpatient (IN) | payer OTHER ==
[~2018-09-18] VITALS: Ht 162.6 cm; Wt 112.9 kg
[~2018-09-18 12:50] MED LIST changes: +METO10 PO; +OMEPRAZOLE20 MG PO; +ONDANSETRON4 MG/2 ML; +PANT40 PO
--- NOTE | 2018-09-18 13:47 | NUR ---
POWERGLIDE - PLACED Monday09/13/18 PER PT, ACCESSED AND DRESSING CHANGED TODAY AT [facility]
--- NOTE | 2018-09-18 14:09 | NUR ---
ULTRASOUND AT BEDSIDE
[2018-09-18 14:11] LABS: Alanine Aminotransfer (ALT/SGP 82 U/L (12-78); Albumin, Blood 2.3 g/dL (3.4-5.0); Albumin/Globulin Ratio 0.7 (0.8-1.8); Alk Phos 124 U/L (50-136); Anion Gap 7 mmol/L (6-16); Aspartate Aminotrans (AST/SGOT 33 U/L (12-37); Bilirubin, Total 0.5 mg/dL (0.1-1.0); Blood Urea Nitrogen 6 mg/dL (8-24); Bun/Creatinine Ratio 9.6 (12.0-20.0); CO2, Blood 25 mmol/L (21-32); Calcium, Blood 7.9 mg/dL (8.5-10.1); Chloride, Blood 111 mmol/L (98-108); Creatinine, Blood 0.63 mg/dL (0.40-1.00); Globulin, Blood 3.5 g/dL (2.2-4.0); Glomerular Filtration Rate >60 (60-); Glucose, Blood 81 mg/dL (70-99); Potassium, Blood 2.9 mmol/L (3.5-5.5); Sodium, Blood 143 mmol/L (136-145); Total Protein, Blood 5.8 g/dL (6.4-8.2)
[2018-09-18 14:19] LABS: BASOPHILS ABSOLUTE AUTO 0.05 K/mm3 (0.00-0.23); BASOPHILS PERCENT AUTO 1 % (0-2); EOSINOPHILS ABSOLUTE AUTO 0.09 K/mm3 (0.00-0.68); EOSINOPHILS PERCENT AUTO 1 % (0-6); Hematocrit 29.5 % (33.0-51.0); Hemoglobin 10.1 g/dL (11.5-16.0); IMMATURE GRAN PERCENT AUTO 1 % (0-1); LYMPHOCYTES ABSOLUTE AUTO 1.52 K/mm3 (0.84-5.20); LYMPHOCYTES PERCENT AUTO 17 % (21-46); MONOCYTES ABSOLUTE AUTO 0.77 K/mm3 (0.16-1.47); MONOCYTES PERCENT AUTO 9 % (4-13); Mean Corpuscular HGB 31.4 pg (26.0-34.0); Mean Corpuscular HGB Conc 34.2 g/dL (31.5-36.5); Mean Corpuscular Volume 92 fL (80-100); Mean Platelet Volume 11.5 fL (9.1-12.4); NEUTROPHILS ABSOLUTE AUTO 6.56 K/mm3 (1.96-9.15); NEUTROPHILS PERCENT AUTO 72 % (41-73); Platelet Count 154 K/mm3 (150-400); RDW Coefficient Variation 13.7 % (11.7-14.2); RDW Standard Deviation 45.4 fL (35.1-46.3); Red Blood Cell Count 3.22 M/mm3 (3.80-5.20); White Blood Cell Count 9.09 K/mm3 (4.00-11.30)
[2018-09-20 13:39] LABS: BASOPHILS ABSOLUTE AUTO 0.01 K/mm3 (0.00-0.23); BASOPHILS PERCENT AUTO 0 % (0-2); EOSINOPHILS PERCENT AUTO 0 % (0-6); Hematocrit 27.4 % (33.0-51.0); Hemoglobin 9.1 g/dL (11.5-16.0); IMMATURE GRAN ABSOLUTE AUTO 0.17 K/mm3 (0.00-0.10); IMMATURE GRAN PERCENT AUTO 2 % (0-1); LYMPHOCYTES ABSOLUTE AUTO 1.32 K/mm3 (0.84-5.20); LYMPHOCYTES PERCENT AUTO 13 % (21-46); MONOCYTES ABSOLUTE AUTO 0.95 K/mm3 (0.16-1.47); MONOCYTES PERCENT AUTO 9 % (4-13); Mean Corpuscular HGB 31.7 pg (26.0-34.0); Mean Corpuscular HGB Conc 33.2 g/dL (31.5-36.5); Mean Platelet Volume 11.1 fL (9.1-12.4); NEUTROPHILS ABSOLUTE AUTO 7.94 K/mm3 (1.96-9.15); NEUTROPHILS PERCENT AUTO 77 % (41-73); Platelet Count 159 K/mm3 (150-400); RDW Coefficient Variation 14.2 % (11.7-14.2); RDW Standard Deviation 49.2 fL (35.1-46.3); Red Blood Cell Count 2.87 M/mm3 (3.80-5.20); White Blood Cell Count 10.39 K/mm3 (4.00-11.30)
[2018-09-20] MEDS ORDERED: LABE100 PO (13:44)
[2018-09-20 13:46] LABS: Mean Corpuscular Volume 96 fL (80-100)
[2018-09-20 14:17] LABS: Alanine Aminotransfer (ALT/SGP 75 U/L (12-78); Albumin, Blood 2.1 g/dL (3.4-5.0); Albumin/Globulin Ratio 0.6 (0.8-1.8); Alk Phos 101 U/L (50-136); Anion Gap 8 mmol/L (6-16); Aspartate Aminotrans (AST/SGOT 30 U/L (12-37); Bilirubin, Total 0.4 mg/dL (0.1-1.0); Blood Urea Nitrogen 6 mg/dL (8-24); Bun/Creatinine Ratio 10.4 (12.0-20.0); CO2, Blood 27 mmol/L (21-32); Calcium, Blood 7.9 mg/dL (8.5-10.1); Chloride, Blood 108 mmol/L (98-108); Creatinine, Blood 0.58 mg/dL (0.40-1.00); Globulin, Blood 3.5 g/dL (2.2-4.0); Glomerular Filtration Rate >60 (60-); Glucose, Blood 105 mg/dL (70-99); Potassium, Blood 2.9 mmol/L (3.5-5.5); Sodium, Blood 143 mmol/L (136-145); Total Protein, Blood 5.6 g/dL (6.4-8.2)
--- NOTE | 2018-09-20 15:24 | NUR ---
CALL FOR US TECH- AFTER TALKING WITH RADIOLOGIST SOME SORT OF CYSTIC MASS IS SEEN ON BABIES LEFT LATERAL SIDE OF NECK WHICH MEASURES 2.1 X 2.5 X 2. REPORT SHOULD BE DONE IN NEXT HOUR. UPDATE TO [facility] AND US TO BE FORWARDED TO DR SEVILLA AT [facility]. WAITING TO HEAR BACK FROM [facility] TO DETERMINE PLAN OF CARE. LABS WNL. PT REMAINS FEELING WELL AND VERY READY TO GO HOME.
--- NOTE | 2018-09-20 16:28 | NUR ---
[facility] AT BEDSIDE DISCUSSING US FINDINGS. PLAN TO BE IN [place] TOMORROW AT [address] GILMAN FOR REPEAT ULTRASOUND. AMBIKAT REVEIWING BP AT THIS TIME BUT PATIENT A LITTLE ANXIOUS AFTER FINDING OUT THE RESULTS. WILL MONITOR AND WHEN THEY COME BACK DOWN WITH DC HOME. PT FEELS GREAT AND HAS NO COMPLAINTS AND TOLERATED POS WELL TODAY.
--- NOTE | 2018-09-20 17:59 | NUR ---
UPDATE TO [facility] ON BP. PIH SYMPTOMS DISCUSSED. PT VERBALIZES UNDERSTANDING. DC HOME STABLE.
== END 2018-09-20 17:57 | disposition home or self-care (01) | DRG 833 ==
LOC: BC 12:50 → OBS 12:50 → BC 12:53 → OBS 13:32 → BC 13:34
PROVIDERS: ADMIT Registered Nurse Community Health
DX: O13.3 Gestational [pregnancy-induced] hypertension without significant proteinuria, third trimester (principal); O21.0 Mild hyperemesis gravidarum; Z3A.35 35 weeks gestation of pregnancy
CPT/HCPCS: 36415; 59025; 76816; 76819; 80053; 85025; 87081; 87653; 96361; 96365; 96372; 96375; J0702; J2405; J3411; J3415; J3475; J7042; J7120

== ENCOUNTER 2018-09-24 00:18 | Day surgery (SDC) | payer OTHER ==
[~2018-09-24 00:18] MED LIST changes: +LABE100 PO
--- NOTE | 2018-09-24 16:27 | NUR ---
CALLED AND SPOKE WITH FABIAN GAFFNEY CNP WITH REPORT OF PT'S BPx2. NO NEW ORDERS.
== END 2018-09-24 17:28 | disposition home or self-care (01) ==
LOC: ATC 00:18
DX: O21.9 Vomiting of pregnancy, unspecified (principal); O99.280 Endocrine, nutritional and metabolic diseases complicating pregnancy, unspecified trimester; E86.0 Dehydration
CPT/HCPCS: 96361; 96365; 96372; 96375; J2405; J3411; J3415; J3475; J7042; J7120

== ENCOUNTER 2018-09-27 20:05 | Inpatient (IN) | payer OTHER ==
[~2018-09-27] VITALS: Ht 162.6 cm; Wt 128.5 kg
[2018-09-27 21:46] LABS: BASOPHILS ABSOLUTE AUTO 0.02 K/mm3 (0.00-0.23); BASOPHILS PERCENT AUTO 0 % (0-2); EOSINOPHILS ABSOLUTE AUTO 0.08 K/mm3 (0.00-0.68); EOSINOPHILS PERCENT AUTO 1 % (0-6); Hematocrit 27.4 % (33.0-51.0); Hemoglobin 9.1 g/dL (11.5-16.0); IMMATURE GRAN ABSOLUTE AUTO 0.09 K/mm3 (0.00-0.10); IMMATURE GRAN PERCENT AUTO 1 % (0-1); LYMPHOCYTES ABSOLUTE AUTO 1.72 K/mm3 (0.84-5.20); LYMPHOCYTES PERCENT AUTO 19 % (21-46); MONOCYTES ABSOLUTE AUTO 0.73 K/mm3 (0.16-1.47); MONOCYTES PERCENT AUTO 8 % (4-13); Mean Corpuscular HGB 31.2 pg (26.0-34.0); Mean Corpuscular HGB Conc 33.2 g/dL (31.5-36.5); Mean Corpuscular Volume 94 fL (80-100); Mean Platelet Volume 11.1 fL (9.1-12.4); NEUTROPHILS ABSOLUTE AUTO 6.54 K/mm3 (1.96-9.15); NEUTROPHILS PERCENT AUTO 71 % (41-73); Platelet Count 177 K/mm3 (150-400); RDW Coefficient Variation 13.7 % (11.7-14.2); RDW Standard Deviation 46.8 fL (35.1-46.3); Red Blood Cell Count 2.92 M/mm3 (3.80-5.20); White Blood Cell Count 9.18 K/mm3 (4.00-11.30)
[2018-10-01 10:17] LABS: PCO2 Cord - Arterial 56.6 mmHg (40-50); PO2 Cord - Arterial 16.4 mmHg (16-20); pH Cord - Arterial 7.31 (7.28-7.35)
[2018-10-01 10:19] LABS: PCO2 Cord - Venous 44.8 mmHg (40-50); PO2 Cord - Venous 26.1 mmHg (28-32); pH Umbilical Cord - Venous 7.36 (7.26-7.35)
--- NOTE | 2018-10-01 10:30 | NUR ---
10/01/18 1030 Angelia Ochoa DELIVERY OF VIABLE MALE . APGARS 9/9. NO WEIGHT DONE IN OR PER PARENTS REQUESTS. PLACENTA DELIVERED COMPLETE, WEIGHT 575 GMS. CORD SEGMENT SENT WITH RT. CORD BLOOD SAMPLE SENT WITH BABY'S NURSE.
[2018-10-02 06:01] LABS: BASOPHILS ABSOLUTE AUTO 0.03 K/mm3 (0.00-0.23); BASOPHILS PERCENT AUTO 0 % (0-2); EOSINOPHILS ABSOLUTE AUTO 0.05 K/mm3 (0.00-0.68); EOSINOPHILS PERCENT AUTO 1 % (0-6); Hematocrit 22.9 % (33.0-51.0); Hemoglobin 7.7 g/dL (11.5-16.0); IMMATURE GRAN ABSOLUTE AUTO 0.05 K/mm3 (0.00-0.10); IMMATURE GRAN PERCENT AUTO 1 % (0-1); LYMPHOCYTES ABSOLUTE AUTO 1.47 K/mm3 (0.84-5.20); LYMPHOCYTES PERCENT AUTO 17 % (21-46); MONOCYTES ABSOLUTE AUTO 0.61 K/mm3 (0.16-1.47); MONOCYTES PERCENT AUTO 7 % (4-13); Mean Corpuscular HGB Conc 33.6 g/dL (31.5-36.5); Mean Corpuscular Volume 92 fL (80-100); Mean Platelet Volume 10.7 fL (9.1-12.4); NEUTROPHILS ABSOLUTE AUTO 6.42 K/mm3 (1.96-9.15); NEUTROPHILS PERCENT AUTO 74 % (41-73); Platelet Count 141 K/mm3 (150-400); RDW Coefficient Variation 14.5 % (11.7-14.2); RDW Standard Deviation 46.9 fL (35.1-46.3); Red Blood Cell Count 2.48 M/mm3 (3.80-5.20); White Blood Cell Count 8.63 K/mm3 (4.00-11.30)
--- NOTE | 2018-10-02 13:48 | NUR ---
PT AMBULATE TO [facility] WITH ,
--- NOTE | 2018-10-02 14:14 | NUR ---
POWER GLIDE IV FROM RT INNER UPPER ARM DCD, PRESSURE HELD FOR 4 MINUTES, NO BLEEDING, PT HAS A FEW SMALL CLOSED SORES FROM THE TAPE/DRESSING. PT REPORTS IT'S VERY ITCHY. TIP WAS INTACT, PT TOLERATED REMOVAL WELLAND REMOVED PART OF THE TAPE HERSELF.
[2018-10-03] MEDS ORDERED: IBUP800 PO (09:45)
[2018-10-03] MEDS ORDERED: Percocet 5-3251 EACH PO (09:46)
--- NOTE | 2018-10-03 10:57 | NUR ---
DISCHARGE SUMMARY PT DISCAHRGED TO HOME. PT LEFT ROOM VIA STEADY GAIT JUST PRIOR TO THIS NOTE. IV DC'D AND BELONGINGS RETURNED. BP AT 1007 WAS 154/84 WITH PROPER FITTING CUFF. CHARGE NURSE, MAYLIN COMPLETED DISCHARGE EDUCATION AND THIS NURSE VERIFIED AND ANSWERED PT QUESTIONS. ALL TEACHING COMPLETED AND ALL QUESTIONS ANSWERED. PT AGREES TO CALL AND SCHEDULE FOLLOW UP ON MONDAY TO ASSESS BP AND WOUND VAC. PT EDUCATED ON MEDICATIONS AND DISCHARGE INSTRUCTIONS. MED'S CALLED TO [facility]. PICKED UP PRIOR TO DC.
== END 2018-10-03 10:50 | disposition home or self-care (01) | DRG 788 ==
LOC: OBS 20:05 → BC 20:06 → OBS 20:12 → BC 20:12
PROVIDERS: Obstetrics & Gynecology; ADMIT Registered Nurse Community Health
PROC: 10S0XZZ Reposition Products of Conception, External Approach (ICD-10-PCS; 2018-09-30)
PROC: 10D00Z1 Extraction of Products of Conception, Low, Open Approach (ICD-10-PCS; principal; 2018-10-01 09:30)
DX: O14.94 Unspecified pre-eclampsia, complicating childbirth (principal); O62.1 Secondary uterine inertia; O99.02 Anemia complicating childbirth; D64.9 Anemia, unspecified; Z3A.37 37 weeks gestation of pregnancy; Z37.0 Single live birth; O34.211 Maternal care for low transverse scar from previous cesarean delivery
CPT/HCPCS: 36415; 59200; 76815; 82803; 85025; 86850; 86900; 86901; J0290; J0690; J1885; J2370; J2405; J2590; J2765; J3010; J7120

== ENCOUNTER → 2019-04-17 | Outpatient (CLI) | payer OTHER ==
[~2019-04-17] MED LIST changes: +IBUP800 PO; +Percocet 5-3251 EACH PO
== END | disposition home or self-care (01) ==
LOC: LAB SHORT 14:22 → LAB EV 14:22
DX: J02.9 Acute pharyngitis, unspecified (principal)
CPT/HCPCS: 87081

== ENCOUNTER → 2023-03-08 | Outpatient (CLI) | payer OTHER ==
[2023-03-08 12:30] LABS: BASOPHILS ABSOLUTE AUTO 0.03 K/mm3 (0.00-0.23); BASOPHILS PERCENT AUTO 1 % (0-2); EOSINOPHILS ABSOLUTE AUTO 0.03 K/mm3 (0.00-0.68); EOSINOPHILS PERCENT AUTO 1 % (0-6); Hemoglobin 16.1 g/dL (11.5-16.0); IMMATURE GRAN ABSOLUTE AUTO 0.04 K/mm3 (0.00-0.10); IMMATURE GRAN PERCENT AUTO 1 % (0-1); LYMPHOCYTES ABSOLUTE AUTO 1.89 K/mm3 (0.84-5.20); LYMPHOCYTES PERCENT AUTO 33 % (21-46); MONOCYTES ABSOLUTE AUTO 0.71 K/mm3 (0.16-1.47); MONOCYTES PERCENT AUTO 12 % (4-13); Mean Corpuscular Volume 86 fL (80-100); Mean Platelet Volume 10.3 fL (9.1-12.4); NEUTROPHILS ABSOLUTE AUTO 3.02 K/mm3 (1.96-9.15); NEUTROPHILS PERCENT AUTO 53 % (41-73); Platelet Count 290 K/mm3 (150-400); RDW Coefficient Variation 13.4 % (11.7-14.2); RDW Standard Deviation 41.1 fL (35.1-46.3); Red Blood Cell Count 5.36 M/mm3 (3.80-5.20); White Blood Cell Count 5.72 K/mm3 (4.00-11.30)
[2023-03-08 12:49] LABS: Albumin, Blood 4.2 g/dL (3.4-5.0); Albumin/Globulin Ratio 0.9 (0.8-1.8); Bilirubin, Total 0.5 mg/dL (0.1-1.0); Bun/Creatinine Ratio 15.8 (12.0-20.0); Calcium, Blood 9.4 mg/dL (8.5-10.1); Creatinine, Blood 1.01 mg/dL (0.40-1.00); Globulin, Blood 4.7 g/dL (2.2-4.0); Potassium, Blood 3.9 mmol/L (3.5-5.5); Thyroid Stimulating Hormone 1.965 uIU/mL (0.360-4.800); Total Protein, Blood 8.9 g/dL (6.4-8.2)
== END | disposition home or self-care (01) ==
LOC: LAB 12:25 → LAB SHORT 12:25
PROVIDERS: Chiropractor
DX: R11.2 Nausea with vomiting, unspecified (principal); R53.83 Other fatigue
CPT/HCPCS: 80053; 84443; 85025

== ENCOUNTER → 2024-07-26 | Outpatient (CLI) | payer OTHER ==
[2024-07-26 13:00] LABS: Source, Urine Clean Catch
[2024-07-26 14:59] LABS: Appearance, Urine Cloudy (Clear); Bilirubin, Urine Neg (Neg); Blood, Urine Neg (Neg); Color, Urine Yellow (P-Yellow); Glucose Qualitative, Urine Neg (Neg); Ketones, Urine Neg (Neg); Leukocyte Esterase, Urine 2+ (Neg); Nitrite, Urine Neg (Neg); Protein, Urine 2+ (Neg); Specific Gravity, Urine 1.025 (1.003-1.022); Urobilinogen, Urine NORM (Normal)
[2024-07-26 15:01] LABS: BASOPHILS ABSOLUTE AUTO 0.04 K/mm3 (0.00-0.23); BASOPHILS PERCENT AUTO 0 % (0-2); EOSINOPHILS ABSOLUTE AUTO 0.11 K/mm3 (0.00-0.68); EOSINOPHILS PERCENT AUTO 1 % (0-6); Hematocrit 40.3 % (33.0-51.0); Hemoglobin 13.9 g/dL (11.5-16.0); IMMATURE GRAN ABSOLUTE AUTO 0.06 K/mm3 (0.00-0.10); IMMATURE GRAN PERCENT AUTO 1 % (0-1); LYMPHOCYTES ABSOLUTE AUTO 2.02 K/mm3 (0.84-5.20); LYMPHOCYTES PERCENT AUTO 21 % (21-46); MONOCYTES ABSOLUTE AUTO 0.47 K/mm3 (0.16-1.47); MONOCYTES PERCENT AUTO 5 % (4-13); Mean Corpuscular HGB Conc 34.5 g/dL (31.5-36.5); Mean Corpuscular Volume 90 fL (80-100); Mean Platelet Volume 10.3 fL (9.1-12.4); NEUTROPHILS ABSOLUTE AUTO 6.75 K/mm3 (1.96-9.15); NEUTROPHILS PERCENT AUTO 71 % (41-73); Platelet Count 251 K/mm3 (150-400); RDW Standard Deviation 42.5 fL (35.1-46.3); Red Blood Cell Count 4.49 M/mm3 (3.80-5.20); White Blood Cell Count 9.45 K/mm3 (4.00-11.30)
[2024-07-26 16:01] LABS: Bacteria Many /hpf; Mucus Mod (0-Heavy); Squamous Epithelial Cells Many /hpf (Few)
[2024-07-26 16:02] LABS: Amorphous Light (0-Heavy); Red Blood Cells, Urine 0-2 /hpf (0-2); Transitional Epithelial Cells Rare /hpf (0-Rare)
[2024-07-30 12:31] LABS: HIV 1,2 COMBO ANTIGEN/ANTIBODY Negative (Negative)
[2024-07-30 12:51] LABS: HEPATITIS B SURFACE ANTIGEN Negative (Negative)
[2024-07-30 20:26] LABS: HEPATITIS C AB CIA INTERP Negative (Negative); HEPATITIS C ANTIBODY CIA INDEX 0.12 IV
== END | disposition home or self-care (01) ==
LOC: LAB 12:56 → LAB SHORT 12:56
PROVIDERS: Registered Nurse Community Health
DX: Z34.91 Encounter for supervision of normal pregnancy, unspecified, first trimester (principal)
CPT/HCPCS: 81001; 84443; 86803; 87086; 87340; 87389

== ENCOUNTER 2024-11-07 07:30 | Day surgery (SDC) | payer OTHER ==
[~2024-11-07] VITALS: Ht 162.6 cm; Wt 115.4 kg
[2024-11-07] MEDS ORDERED: FentaNYL Citrate 50 MCG/ML 2 ML Injection ONE (07:52)
[2024-11-07] MEDS ORDERED: Midazolam HCl 1MG / ML 2ML Vial ONE (07:52)
[2024-11-07] MEDS ORDERED: Sugammadex Sodium 200 MG/2ML SDV (100 MG/ML) ONE (07:52)
[2024-11-07] MEDS ORDERED: CeFAZolin Sodium 2,000 MG VIAL ONE (08:19)
[2024-11-07] MEDS ORDERED: Ondansetron HCl 2 MG / ML 2ML Vial ONE (08:24)
[2024-11-07] MEDS ORDERED: Dexamethasone Sod Phos 10 MG/ML 1ML VIAL ONE (08:24)
[2024-11-07] MEDS ORDERED: Rocuronium Bromide 10 MG/ML 5ML Injection IV ONE (08:24)
[2024-11-07] MEDS ORDERED: Ketorolac Tromethamine 30mg Vial ONE (09:12)
--- NOTE | 2024-11-07 09:16 | NUR ---
11/07/24 0915 Chiara Epstein ABDOMINAL AREA PREPPED WITH CHLORAPREP BY SXB
[2024-11-07] MEDS ORDERED: Bupivacaine 0.5% W/EPI 1:200000 SDV 30 ML Vial INJ ONE (09:17)
[2024-11-07] MEDS ORDERED: HYDROmorphone HCl/Pf 1MG SYR ONE (10:10)
--- NOTE | 2024-11-07 10:27 | NUR ---
11/07/24 1027 Miranda Medina REPORT RECEIVED FROM RN AND ANNETTA. VSS. PT DROWSY. ABDOMINAL INCISION CDI, PERIPAD CDI. PT DENIES PAIN OR NAUSEA AT THIS TIME. PT FOLLOWS COMMANDS AND ANSWERS QUESTIONS
--- NOTE | 2024-11-07 10:50 | NUR ---
11/07/24 1050 Miranda Medina PT TAKEN TO BATHROOM VIA WHEELCHAIR, PT VOIDED X1. AT BEDSIDE NOW
[2024-11-07 10:52] VITALS: BP 116/74
[2024-11-07] MEDS ORDERED: Propofol 10mg/ml 20 ml Vial (Procedural) IV ONE (18:46)
== END 2024-11-07 11:16 | disposition home or self-care (01) ==
LOC: ORSCSDS 07:30 → ORSCMMR 07:30 → ORSCSDS 09:00 → ORSCMMR 11:16 → ORSCSDS 11:16
PROVIDERS: Obstetrics & Gynecology
PROC: 0UT74ZZ Resection of Bilateral Fallopian Tubes, Percutaneous Endoscopic Approach (ICD-10-PCS; principal; 2024-11-07 09:00)
DX: Z30.2 Encounter for sterilization (principal); E66.01 Morbid (severe) obesity due to excess calories; Z68.41 Body mass index [BMI] 40.0-44.9, adult; F17.210 Nicotine dependence, cigarettes, uncomplicated; K21.9 Gastro-esophageal reflux disease without esophagitis; F41.9 Anxiety disorder, unspecified
CPT/HCPCS: 88302; J0690; J1100; J1171; J1885; J2250; J2405; J2704; J3010